=== PATIENT | female | born 1945 | race Caucasian/White ===

== ENCOUNTER 2024-05-29 18:06 | Inpatient (IN) | payer MEDICARE, SELFPAY ==
[2024-05-29] VITALS (8 sets, daily range): BP systolic 115–175; BP diastolic 63–97; BMI 43.7; BMI 42.6
--- NOTE | 2024-05-29 15:36 | ED.GENMED ---
History of Present Illness
General
Chief Complaint: Cardiac Symptoms
Time Seen by Provider: 05/29/24 15:36
History of Present Illness
History of Present Illness:
HPI: The patient presents due to concerns regarding atrial fibrillation. She has had A-fib in the past and has had ablations by [facility] twice in the past most recently a few years ago. She feels that she has been in atrial fibrillation for the
past 7 days. She called her radiation engineer at [facility], Dr. Miranda. She also called Dr. Roberts who recommended that the patient add Imodium as she has been having a lot of diarrhea intermittently for the last few weeks. She has a history of
IBS and is on Viberzi.
EXAM:
GENERAL: Well appearing in no distress
HEENT: Moist oral mucosa
CARDIOVASCULAR: No murmurs, tachycardic heart rate, irregular rhythm, No chest wall tenderness
PULMONARY: No respiratory distress, breath sounds are clear and equal
ABDOMEN: Soft with no peritoneal signs, no tenderness
NEUROLOGIC: Excellent strength all extremities, no coordination deficits
PSYCHIATRIC: Appropriate mental status, normal insight and judgement
EXTREMITIES: Nontender, no edema, moves all extremities equally
SKIN: No rash, no lesions
TIME OF INITIAL ENCOUNTER: 3:45 PM
NUMBER AND COMPLEXITY OF PROBLEMS ADDRESSED AT THE ENCOUNTER
� Chronic conditions affecting care: Atrial fibrillation on Xarelto, CHF, high blood pressure, hyperlipidemia, diverticular disease, thyroid disease
� Acute Exacerbation and/or Progression of Chronic Illness: This is an acute exacerbation of a chronic problem
� Differential Diagnosis includes: A-fib with RVR, electrolyte abnormality, thyroid disease, HORTENCIA, dehydration
AMOUNT AND/OR COMPLEXITY OF DATA TO BE REVIEWED AND ANALYZED
� I performed an independent evaluation of and my interpretation is:
EKG: A-fib with nonspecific ST abnormality and ventricular rate of 155
CT:
X-rays:
Laboratory Studies: CBC normal, chemistries unremarkable, troponin normal, thyroid unremarkable
Other:
� Review of other/old records: The patient was here in September 2023 with left hip surgery
� Clinical information was obtained by an independent historian: I spoke to at bedside
� Prescriptions/Medications Considered but not given:
� Further testing considered but not performed:
RISK OF COMPLICATIONS AND/OR MORBIDITY OR MORTALITY OF PATIENT MANAGEMENT
� Social determinants of health affecting care: Lives at home
� Discussion with other providers: I spoke with Dr. Lyn initially suggested we cardiovert however ultimately was decided to have patient kept in the hospital and he will likely placed on amio at some point. Hospitalist,
Dr. Felton for admission.
� Escalation of care including admission/observation vs risk of discharge considered: The patient was started on Cardizem drip with some improvement of heart rate. Lab work unremarkable.
Past History
Past History
ED Past Medical History: Arrthythmia, CHF, HTN, Hypercholesterolemia and Other (PUD)
ED Past Surgical History: None
Patient has exhibited threatening behavior?: No
PSI?: No
Phy Exam
Physical Exam
Physical Exam:
See HPI
Course
Orders/Labs/Results
Orders:
Orders
05/29/24 Breakfast
Cholesterol Lowering
At Your Request: Full Participation
Cholesterol Lowering: Sodium, 2 Gram
05/29/24 15:17
Electrocardiogram (*1) Urgent
Reason for Study: Atrial Fibrillation
05/29/24 15:18
EKG- Treatment ONCE
05/29/24 15:37
Add On- LAB Urgent
Tests Added?: tsh reflex free t4
05/29/24 15:42
0.9% Sodium Chloride 1000 ml [Nss] 1,000 ml IV BOLUS
Diltiazem HCl [Cardizem] 10 mg IV NOW STA
05/29/24 15:45
Diltiazem 125 mg/125 ml Nss [Cardizem] 125 mg in 125 ml IV PER PROTOCOL
Initial dose in mg/hr, then titrate:: 5
Titrate to keep:: Heart rate 80-100 bpm
Titrate by mg/hr:: 5 mg/hr
Frequency of titrations (minutes):: 15
Maximum dose in mg/hr:: 15
05/29/24 15:50
Complete Blood Count/With Diff Urgent
PT/INR [Prothrombin Time] Urgent
PTT Urgent
Troponin I Urgent
05/29/24 16:19
Comprehensive Metabolic Panel Routine
TSH Reflex To Free T4 Routine
Comment: ADD ON
05/29/24 17:25
Admit/Transfer Patient As Directed
Co-Sign Provider:
Level of Care: Inpatient admission
Assign to:: IVU
Physician / Group: linh
Diagnosis: atrial fib with RVR
Reason for Hospitalization: atrial fib with RVR
Expected length of stay greater than two midnights?: Yes
ELOS- Estimated Length of Stay in days: 3
I certify the patient meets the requirements for IP care: Yes
PRN Pain Medication Management As Directed
May give lesser potent ordered pain med per pt: Yes
preference::
Protocol:: Medication orders for pain may be administered in a
manner that supports deferring to patient preference
when the pt is:
- Requesting an ordered lesser potent pain medication.
Least to most potent pain medications are defined
as: acetaminophen < NSAID < tramadol < opioids
(morphine, oxycodone, hydromorphone).
- Requesting a lesser dose of the same medication IF
ORDERED.
- Requesting a less intrusive route of administration
if both routes are prescribed by the provider (PO <
IV).
05/29/24 17:26
Code Status As Directed
Resuscitation Status: Full Code
05/29/24 20:02
Electrocardiogram (*1) Q6H
Reason for Study: Chest Pain
Comment: at admission and Q3H for total of 3, to be done with each troponin
Troponin I Q3H
Comment: at admit & Q3H for 3 total including ED draws, obtain ECG with each level
Atorvastatin [Lipitor] 20 mg PO QPM
Dofetilide [Tikosyn] 500 mcg PO BID
Rivaroxaban [Xarelto] 20 mg PO QPM
acetaminophen 1,300 mg PO Q12H
calcium carbonate-vitamin D3 [Caltrate 600 plus D] 1 ea PO BID
eluxadoline [Viberzi] 100 mg PO BID
icosapent ethyl [Vascepa] 1 grams PO BID
05/29/24 20:02
CARDIOLOGY CONSULT Routine
Consulting Provider: Alphonso Moore
Was physician already notified: Yes
Glycohemoglobin (HgbA1c) Routine
Norovirus by PCR Routine
MARIANA Source: Feces/Stool
Specimen Description:
Stool Culture Routine
MARIANA Source: Feces/Stool
Specimen Description:
Activity As Directed
Activity Level: As Tolerated
Activity As Directed
Activity Level: As Tolerated
INT (Intravenous Needle Therapy) As Directed
Comment: maintain peripheral IV access
Intake/ Output As Directed
Frequency: Per unit guidelines
Vital Signs As Directed
Frequency: Per unit guidelines
Vital Signs As Directed
Frequency: q4h
Weight As Directed
Frequency: Daily
Cpap [RESP] Routine
Patient to use own unit?: Yes
05/29/24 22:00
Cetirizine HCl [Zyrtec] 10 mg PO HS
esomeprazole magnesium [Nexium] 40 mg PO HS
05/29/24 23:02
Troponin I Q3H
Comment: at admit & Q3H for 3 total including ED draws, obtain ECG with each level
05/30/24 02:02
Electrocardiogram (*1) Q6H
Reason for Study: Chest Pain
Comment: at admission and Q3H for total of 3, to be done with each troponin
Troponin I Q3H
Comment: at admit & Q3H for 3 total including ED draws, obtain ECG with each level
05/30/24 06:00
Basic Metabolic Panel IN AM
Cardiovascular Evaluation IN AM
Complete Blood Count/No Diff IN AM
05/30/24 08:00
Cholecalciferol (Vitamin D3) [VITAMIN D3 (cholecalciferol)] 50 mcg PO DAILY
Ferrous Sulfate [Feosol] 325 mg PO DAILY
mirabegron [Myrbetriq] 50 mg PO DAILY
05/30/24 08:02
Electrocardiogram (*1) Q6H
Reason for Study: Chest Pain
Comment: at admission and Q3H for total of 3, to be done with each troponin
05/31/24 06:00
Basic Metabolic Panel IN AM
Complete Blood Count/No Diff IN AM
06/01/24 06:00
Basic Metabolic Panel IN AM
Complete Blood Count/No Diff IN AM
06/02/24 06:00
Basic Metabolic Panel IN AM
Complete Blood Count/No Diff IN AM
06/03/24 06:00
Basic Metabolic Panel IN AM
Complete Blood Count/No Diff IN AM
Abnormal Lab Results
05/29/24 05/29/24
15:50 16:19
Absolute Neuts (auto) 6.7 H 10^3/uL
(1.4-6.5)
Lymphocytes % 18.0 L %
(20.5-51.1)
PT 15.5 H Sec
(11.4-14.6)
APTT 19.5 L Sec
(23.4-35.0)
Carbon Dioxide 20 L mmol/L
(22-30)
Glucose 111 H mg/dl
(70-99)
05/29/24 15:50
05/29/24 16:19
Vital Signs
Initial and Last Documented VS:
Initial Vital Signs
Temp Pulse Resp BP Pulse Ox
98.4 F 144 18 175/85 94
05/29/24 15:09 05/29/24 15:09 05/29/24 15:09 05/29/24 15:09 05/29/24 15:09
Last Documented Vital Signs
Temp Pulse Resp BP Pulse Ox
98.2 F 108 16 146/85 94
05/29/24 19:57 05/29/24 20:02 05/29/24 19:57 05/29/24 20:02 05/29/24 19:57
*Critical Care Note
Total Time (30-74mins, 75-104mins- exclusive of procedures): 60min
comment:
The patient was placed on Cardizem bolus and drip and vital signs closely monitored. Her rates were 150s.
ED Attending Note
-
Portions of this chart may have been created with voice recognition software.� Occasional wrong word or��sound alike� substitutions may have occurred due to the inherent limitations of voice recognition software.
Discharge Plan
Departure
Patient Disposition: Admit
Date of Disposition: 05/29/24
Time of Disposition: 16:54
Presentation/result/management discussed w/ accepting MD/DO: Hospitalist
Discharge Problem:
Atrial fibrillation with rapid ventricular response
Interventions
Interventions:
*Risk Screen - Suicide Last Done: 05/29/24 20:12
*General Assessment Last Done: 05/29/24 16:30
*Neglect/Abuse Screening Last Done: 05/29/24 16:30
*ED COVID-19 Vaccine History Last Done: 05/29/24 20:12
*Nursing Disposition Last Done: 05/29/24 19:51
ED- Pulmonary Assessment Last Done: 05/29/24 17:39
ED- Cardiac Assessment Last Done: 05/29/24 17:39
Discharge Date and Time
Discharge Date/Time: 05/29/24 19:51
[2024-05-29 16:02] LABS: % Basophils 0.6 % (0-2); % Eosinophils 0.4 % (0-6); % Immature Granulocytes 0.3 % (0-0.5); % Monocytes 6.3 % (1.7-9.3); % Neutrophils 74.4 % (42.2-75.2); Absolute Basophils 0.1 10^3/uL (0-0.2); Absolute Lymphocytes 1.6 10^3/uL (1.2-3.4); Absolute Monocytes 0.6 10^3/uL (0.1-0.6); Absolute Neutrophils 6.7 10^3/uL (1.4-6.5); Hematocrit 38.9 % (37.0-47.0); Hemoglobin 13.6 g/dL (12.0-16.0); Mean Corpuscular Hgb 29.7 pg (27.0-31.0); Mean Corpuscular Volume 84.9 fL (81.0-99.0); Mean Platelet Volume 9.3 fL (7.4-10.4); Nucleated Red Blood Cells % 0 %; Platelet Count 296 10^3/uL (130-400); Red Blood Cell Count 4.58 10^6/uL (4.20-5.40); Red Cell Dist. Width 13.3 % (11.5-14.5)
--- NOTE | 2024-05-29 16:18 | CON.CAR ---
Addendum entered and electronically signed by Alphonso Moore MD 05/29/24 16:56:
I saw and examined the patient.
The VOYAGE MANAGEMENT SYSTEM OPERATOR or PA's note was reviewed and I agree with the note.
Comment: General: Well developed, well nourished in NAD.
Neck: Supple, no JVD, HJR, carotids +2 B/L, no bruits bilaterally.
Heart: Non displaced PMI, Irregular, tachycardic, no murmurs, No S3, S4, no rubs.
Lungs: Clear to auscultation bilaterally, no wheeze, rhonchi, rubs bilaterally,
normal expiratory phase.
Abdomen: Normal bowel sounds, soft, non-tender, non-distended.
Extremities: No clubbing, cyanosis or edema bilaterally.
Neuro: Grossly nonfocal, awake, alert and oriented x3.
Halima has history of A-fib status post PVI x 2 maintained on Tikosyn, Cardizem, Xarelto. She has had issues with diarrhea recently. She reports having A-fib 2 to 3 days every week. However over the past 7 days she has had A-fib persistently. She
presented to the ER in rapid A-fib and cardiology is consulted.
She will be admitted for hydration and treatment of diarrhea. Will continue Tikosyn for now. If she remains in A-fib might consider cardioversion on Tikosyn or change to amiodarone. I discussed with her outpatient EP Dr. Ferguson.
Original Note:
Consultation
Consultation Request
Date/Time Consultation Performed: 05/29/24
Requesting Provider: Dr. Merrill
Performing Provider: Lisseth Felipe PA-C for Dr. Moore
Reason for Consultation: afib
Medical History
-
Chief Complaint: afib, diarrhea
History of Present Illness:
HPI: Halima is a 76-year-old female with past medical history of paroxysmal atrial fibrillation status post PVI x2 most recently in 2018 who is maintained on Tikosyn and Cardizem CD2 40 mg once daily. She also has history of chronic HFpEF,
hypertension, hyperlipidemia, hiatal hernia, obesity, and chronic cystitis who presents to ER for evaluation of atrial fibrillation and diarrhea. She reports she is chronic IBS and has had issues with persisting diarrhea. She called her GI
practice who recommended taking Imodium. She reports she has continued with diarrhea, although over the last day or so she has noted maybe some mild improvement. Denies dark stools or blood in stools. Denies fevers, chills, abd pain, sick
contacts. She states normally she has 2 to 3 days of A-fib every other week, however over the last 7 days has been persistently in A-fib. States her heart rates have ranged from 10 8-1 54, worse with exerting herself. She denies lower extremity
edema or shortness of breath at rest, although does report some shortness of breath with exertion which is typical of being in atrial fibrillation for her. As an outpatient repeat ablation versus convergent maze procedure have been discussed with
patient, however she had opted to continue medical therapy with Tikosyn at last office visit in February. She has been compliant with Xarelto therapy. Labs presently pending.
PMH:
Paroxysmal to persistent Afib
s/p PVI outside hospital 2013
s/p PVI outside hospital 2017
Tikosyn loading and successful CV 03/02/22
Admission for uptitration of Tikosyn 03/15/22
Chronic Xarelto OAC
Chronic HFpEF
HTN
HLD
h/o bradycardia
chronic cystitis
hiatal hernia
OA
obesity
h/o COVID 03/17/22
Past Medical History
Past Medical History: Other (in HPI)
Past Surgical History: Other (Oral surgery, appendectomy, cardioversion, PVI 2013 and 2017)
Social History
Tobacco: Non-Smoker
Alcohol: None
Drug: None
Personal:
Living: With Family
Employment: Retired
Family History
Family History: Reviewed & Not Pertinent
Allergies / Home Medications
Allergy/AdvReac Type Severity Reaction Status Date / Time
fesoterodine fumarate Allergy Unknown Verified 10/06/23 06:06
[From Toviaz]
Sulfa (Sulfonamide Allergy Tongue Verified 10/06/23 06:06
Antibiotics) Swelling
sulfamethoxazole Allergy Tongue Verified 10/06/23 06:06
[From Bactrim] Swelling
trimethoprim [From Bactrim] Allergy Tongue Verified 10/06/23 06:06
Swelling
�Medication �Instructions �Recorded �Confirmed �Type
calcium carbonate 600 mg-vitamin 1 ea PO BID Supplement 02/14/14 10/06/23 History
D3 20 mcg (800 unit) chewable
tablet (Caltrate 600 plus D)
cetirizine 10 mg tablet 10 mg PO HS Allergies 02/14/14 10/06/23 History
esomeprazole magnesium 40 mg 80 mg PO QPM Gastrointestinal issue 02/14/14 10/06/23 History
capsule,delayed release (Nexium)
eluxadoline 100 mg tablet (Viberzi) 100 mg PO BID Gastrointestinal 08/29/18 10/06/23 History
issue
mirabegron 50 mg tablet,extended 50 mg PO DAILY Urinary issue 08/29/18 10/06/23 History
release 24 hr (Myrbetriq)
glucosamine sulfate dipotassium Cl 1 cap PO DAILY Supplement 11/10/18 10/06/23 History
500 mg-chondroitin 400 mg capsule
(Glucosamine Sulfate 2
KCL-Chondroitin)
meclizine 12.5 mg tablet 12.5 mg PO Q8HPRN PRN vertigo 11/10/18 10/06/23 History
diltiazem HCl 240 mg 240 mg PO DAILY #90 caps 03/04/22 10/06/23 Rx
capsule,extended release 24 hr
atorvastatin 20 mg tablet (Lipitor) 20 mg PO HS High cholesterol 08/11/22 10/06/23 History
icosapent ethyl 1 gram capsule 1 g PO BID Kidney Disease 08/11/22 10/06/23 History
(Vascepa)
fluticasone propionate 50 1 spray intranasal DAILYPRN PRN 12/23/22 10/06/23 History
mcg/actuation nasal congestion
spray,suspension (Flonase Allergy
Relief)
rivaroxaban 20 mg tablet (Xarelto) 20 mg PO QPM Blood clot 12/23/22 10/06/23 History
prevention/tx
dofetilide 250 mcg capsule 500 mcg PO BID Arrhythmia 12/24/22 10/06/23 History
acetaminophen 650 mg 1,300 mg PO Q12H Pain 09/08/23 10/06/23 History
tablet,extended release
cholecalciferol (vitamin D3) 50 50 mcg PO DAILY Supplement 09/08/23 10/06/23 History
mcg (2,000 unit) tablet (Vitamin
D3)
ferrous sulfate 325 mg (65 mg 325 mg PO DAILY Supplement 09/08/23 10/06/23 History
iron) tablet (Iron (ferrous
sulfate))
furosemide 20 mg tablet (Lasix) 20 mg PO DAILY PRN swelling 09/08/23 10/06/23 History
prochlorperazine 25 mg rectal 25 mg SD BID PRN vertigo 09/08/23 10/06/23 History
suppository (Compro)
riboflavin (vitamin B2) 400 mg 400 mg PO DAILY Supplement 09/08/23 10/06/23 History
tablet
mupirocin 2 % topical ointment 1 applic topical BID infection 09/27/23 Rx
prevention #1 tube
Saccharomyces boulardii 250 mg 250 mg PO BID #1 cap 10/07/23 Rx
capsule (Florastor)
cefadroxil 500 mg capsule 500 mg PO BID infection prevention 10/07/23 Rx
#14 caps
dexamethasone 4 mg tablet 4 mg PO BID inflammation #6 tabs 10/07/23 Rx
docusate sodium 100 mg capsule 100 mg PO BID stool softner #1 cap 10/07/23 Rx
(Colace)
gabapentin 300 mg capsule 300 mg PO HS sleep/pain #10 caps 10/07/23 Rx
magnesium hydroxide 400 mg/5 mL 30 ml PO HS PRN Constipation #1 mL 10/07/23 Rx
oral suspension (Milk of Magnesia)
ondansetron 4 mg disintegrating 4 mg PO Q6H PRN n/v #20 tabs 10/07/23 Rx
tablet
rivaroxaban 10 mg tablet (Xarelto) 10 mg PO QPM dvt prophylaxis #2 10/07/23 Rx
tabs
sennosides 8.6 mg tablet (Senokot) 17.2 mg (2 x 8.6 mg) PO BID 10/07/23 Rx
laxative #2 tabs
tramadol 50 mg tablet 50 - 100 mg (1 - 2 x 50 mg) PO Q6H 10/07/23 Rx
PRN 1 tab moderate, 2 tabs if pain
severe #30 tabs
Review of Systems
-
History Source: Patient and Family
All other systems: Negative unless noted
Physical Exam
Vital Signs
Temp Pulse Resp BP Pulse Ox
98.4 F 144 18 175/85 94
05/29/24 15:09 05/29/24 15:09 05/29/24 15:09 05/29/24 15:09 05/29/24 15:09
Lab Results
05/29/24 15:50
Physical Exam
General: No Apparent Distress, Comfortable and Other (obese)
HEENT: Normocephalic, Anicteric and Moist Mucous Membranes
Respiratory: Clear and Non Labored Respirations
Cardiac: S1/S2 and Irregular Rhythm
GI: Soft, Non Tender, Non Distended and Normal Bowel Sounds
Musculoskeletal: No Clubbing, No Cyanosis and No Edema
Skin: Warm and Dry
Neuro: AO x 3
Impression / Plan
-
Primary Desk Officer: Dr. Miranda of [facility]
Primary EP: Dr. Ferguson
Impression:
Presented with diarrhea in setting of chronic IBS
Suspected dehydration
Paroxysmal Afib w/ RVR
s/p PVI outside hospital 2013
s/p PVI outside hospital 2018
Tikosyn loading and successful CV 03/02/22
Admission for uptitration of Tikosyn 03/15/22
Chronic Xarelto OAC
Chronic HFpEF
HTN
HLD
h/o bradycardia
chronic cystitis
hiatal hernia
OA
obesity
h/o COVID 03/17/22
ECHO 2019: at [facility]: EF 72%, normal LV wall thickness, normal RV size and function, mildly dilated LA
Plan:
-She presents with recent persistent diarrhea
-There is concern for dehydration
-Also in atrial fibrillation with rapid ventricular response, patient reports persistent over the last 7 days, likely secondary to above
-She reports what appears to be a fairly high burden of atrial fibrillation on tikosyn 500mcg Q12H. would consider tikosyn washout with transition to amiodarone as bridge to redo ablation. she is agreeable to consider redo ablation if needed,
however would like to avoid convergent MAZE procedure as more invasive
-for now, await labs. replete electrolytes as needed. IV fluid hydration
-initiate IV cardizem gtt
-treatment of diarrhea per primary service/GI
-consider for CV prior to DC. no missed doses of xarelto, continue
-trop negative
-will attempt to obtain records from Dr. Miranda's office in AM - consider repeating echo, last from 2019 with results as above
-d/w ER physician. d/w EP. d/w patient and at bedside.
PREADMIT-Halima is a 76-year-old female with past medical history of paroxysmal atrial fibrillation status post PVI x2 who is maintained on Tikosyn and Cardizem CD2 40 mg once daily. She also has history of chronic HFpEF, hypertension,
hyperlipidemia, hiatal hernia, obesity, and chronic cystitis who presents to ER for evaluation of 24 hours of vertigo and feeling off balance with associated nausea and vomiting. On arrival to the emergency room she was noted to be in rapid
atrial fibrillation by EKG with heart rate of 141bpm. She was given 10 mg of IV Cardizem and started on Cardizem drip. Heart rates improved, however still elevated in 110s. She is maintained on chronic Xarelto for anticoagulation and denies any
missed doses. Lab work shows stable kidney function and electrolytes. Troponin negative x1. She denies any chest pain, palpitations, shortness of breath at rest, or dyspnea on exertion. In ED she was also given Valium and Zofran along with IV
fluids for vertigo symptoms. Patient had recent admission to for up titration of Tikosyn on 03/15/2022. She had recurrence of atrial fibrillation during this admission and plan was for outpatient cardioversion if she did not spontaneously
convert, however at outpatient follow-up visit she was in sinus rhythm.
Data Reviewed
-
EKG: Tracing Personally Visualized and interpreted
Medical Tests (Nuc Med, Echo etc): Report Reviewed by me
Labs: Labs Reviewed by me
Old Records: Reviewed
[2024-05-29 16:22] LABS: Troponin I < 0.012 ng/ml
[2024-05-29] MEDS: CARDIZEM 10 MG IV (16:22)
[2024-05-29] MEDS: NSS 1000 IV (16:22)
[2024-05-29] MEDS: CARDIZEM 125 IV (16:27)
[2024-05-29 16:32] LABS: INR 1.25; PT 15.5 Sec (11.4-14.6)
[2024-05-29 16:33] LABS: APTT 19.5 Sec (23.4-35.0)
[2024-05-29 16:44] LABS: ALT (SGPT) 20 U/L (0-35); AST (SGOT) 31 U/L (14-36); Albumin 4.5 g/dl (3.5-5.0); Alkaline Phosphatase 116 U/L (38-126); Blood Urea Nitrogen 17 mg/dl (7-17); Calcium 9.5 mg/dl (8.4-10.2); Carbon Dioxide 20 mmol/L (22-30); Chloride 105 mmol/L (98-107); Estimated Creatinine Clearance 92 ml/min; Glucose 111 mg/dl (70-99); Sodium 141 mmol/L (135-145); Total Bilirubin 0.8 mg/dl (0.2-1.3); Total Protein 7.2 g/dl (6.3-8.2); eGFR > 60.00
--- NOTE | 2024-05-29 17:03 | HPS.HSE ---
Family Physician
-
Family Physician: Rashard Mckeon MD
Chief Complaint
-
sob
-diarrhea
History of Present Illness
76-year-old female with past medical history of paroxysmal atrial fibrillation status post PVI x2 most recently in 2018 who is maintained on Tikosyn and Cardizem CD2 40 mg once daily. She also has history of chronic HFpEF, hypertension,
hyperlipidemia, hiatal hernia, obesity, and chronic cystitis who presents to ER for evaluation of atrial fibrillation and diarrhea. She reports she is chronic IBS and has had issues with persisting diarrhea. for past three weeks, intermittent
diarrhea. her GI recommended Imodium which she took with some relief in her symptoms. Denies dark stools or blood in stools. Denies fevers, chills, abd pain, sick contacts. for past 7 days, she was noted too have intermittent atrial fib. she noted
it in her apple watch.stated sob, when in atrial fib.she felt chest pressure with atrial fib. she was lightheaded. denied FLORES or syncopal episode. denied fever, chills, runny nose, congestion, cough. denied abdominal pain, n,v. denied dysuria or
hematuria. denied weight gain or LE edema.
On arrival she was noted in rapid A-fib. Initiated on Cardizem. Admitting for further management
Medical History
Past Medical History
Past Medical History: Reports Other
Additional Past Medical History:
A-fib
sjorgen disease
Bleeding ulcer
Hiatal hernia
Fibromyalgia
Interstitial cystitis
Osteoarthritis
Hyperlipidemia
IBS
M�ni�re's disease
Lupus
Hypertension
Cardiac ablation
Past Surgical History: Reports Other
Additional Past Surgical History:
Oral surgery
Appendectomy
Cardioversion
Dental implant
Left hip replacement
Social History
Tobacco: Non-smoker
Alcohol: None
Drug: None
Personal:
Living: With Family
Family History
Family History: Not pertinent
Allergies / Home Medications
Allergies reflects when Allergies were last updated in [facility].
Home Medications with original date entered in [facility]
Allergy/Medication List:
Allergies
Allergy/AdvReac Type Severity Reaction Status Date / Time
fesoterodine fumarate Allergy Unknown Verified 05/29/24 16:29
[From Toviaz]
Sulfa (Sulfonamide Allergy Tongue Verified 05/29/24 16:29
Antibiotics) Swelling
sulfamethoxazole Allergy Tongue Verified 05/29/24 16:29
[From Bactrim] Swelling
trimethoprim [From Bactrim] Allergy Tongue Verified 05/29/24 16:29
Swelling
Home Medications
calcium carbonate 600 mg-vitamin D3 20 mcg (800 unit) chewable tablet (Caltrate 600 plus D) 1 ea PO BID Supplement 02/14/14
cetirizine 10 mg tablet 10 mg PO HS Allergies 02/14/14
eluxadoline 100 mg tablet (Viberzi) 100 mg PO BID Gastrointestinal issue 08/29/18
mirabegron 50 mg tablet,extended release 24 hr (Myrbetriq) 50 mg PO DAILY Urinary issue 08/29/18
glucosamine sulfate dipotassium Cl 500 mg-chondroitin 400 mg capsule (Glucosamine Sulfate 2 KCL-Chondroitin) 1 cap PO DAILY Supplement 11/10/18
meclizine 12.5 mg tablet 12.5 mg PO Q8HPRN PRN vertigo 11/10/18
diltiazem HCl 240 mg capsule,extended release 24 hr 240 mg PO DAILY #90 caps 03/04/22
atorvastatin 20 mg tablet (Lipitor) 20 mg PO QPM High cholesterol 08/11/22
icosapent ethyl 1 gram capsule (Vascepa) 1 g PO BID Kidney Disease 08/11/22
fluticasone propionate 50 mcg/actuation nasal spray,suspension (Flonase Allergy Relief) 1 spray intranasal DAILYPRN PRN congestion 12/23/22
rivaroxaban 20 mg tablet (Xarelto) 20 mg PO QPM Blood clot prevention/tx 04/06/23
acetaminophen 650 mg tablet,extended release 1,300 mg PO Q12H Pain 09/08/23
cholecalciferol (vitamin D3) 50 mcg (2,000 unit) tablet (Vitamin D3) 50 mcg PO DAILY Supplement 09/08/23
ferrous sulfate 325 mg (65 mg iron) tablet (Iron (ferrous sulfate)) 325 mg PO DAILY Supplement 09/08/23
furosemide 20 mg tablet (Lasix) 20 mg PO DAILYPRN PRN swelling 09/08/23
prochlorperazine 25 mg rectal suppository (Compro) 25 mg [place] BIDPRN PRN vertigo 09/08/23
riboflavin (vitamin B2) 400 mg tablet 400 mg PO DAILY Supplement 09/08/23
dofetilide 500 mcg capsule 500 mcg PO BID 05/29/24
esomeprazole magnesium 20 mg capsule,delayed release (Nexium) 40 mg PO HS 05/29/24
metoprolol succinate 25 mg tablet,extended release 24 hr 25 mg PO DAILYPRN PRN atrial fibrillation 05/29/24
Review of Systems
-
Constitutional: Reports No Symptoms
EENT: Reports No Symptoms
Respiratory: Reports Trouble Breathing
Cardiac: Reports No Symptoms
Abdomen/GI: Reports Diarrhea
: Reports No Symptoms
Musculoskeletal: Reports No Symptoms
Skin: Reports No Symptoms
Neurological: Reports No Symptoms
Endocrine: Reports No Symptoms
Hematologic/Lymphatic: Reports No Symptoms
Psych: Reports No Symptoms
Physical Exam
Vital Signs
Vital Signs
Temp Pulse Resp BP Pulse Ox
98.4 F 133 18 135/97 94
05/29/24 15:09 05/29/24 16:22 05/29/24 15:05/29/24 16:22 05/29/24 15:09
Physical Exam
General: Well Developed, Well Nourished and No Apparent Distress
HEENT: NormoCephalic, Moist mucous membranes and Atraumatic
Respiratory: Clear
Cardiac: Irregular Rhythm and Tachycardia; No Murmur or Rub
GI: Soft, Non Tender, Non Distended and Normal Bowel Sounds; No Organomegaly
Rectal: Deferred by Provider
Musculoskeletal: No Clubbing, No Cyanosis and No Edema
Skin: No Rash
Neuro: AO x 3 and Nonfocal/grossly intact
Psych: Calm
Laboratory Results
-
05/29/24 15:50
05/29/24 16:19
Laboratory Results
PT 15.5 Sec (11.4-14.6) H 05/29/24 15:50
INR 1.25 05/29/24 15:50
APTT 19.5 Sec (23.4-35.0) L 05/29/24 15:50
Total Bilirubin 0.8 mg/dl (0.2-1.3) 05/29/24 16:19
AST 31 U/L (14-36) 05/29/24 16:19
ALT 20 U/L (0-35) 05/29/24 16:19
Alkaline Phosphatase 116 U/L (38-126) 05/29/24 16:19
Troponin I < 0.012 ng/ml 05/29/24 15:50
Data Reviewed
-
Lab Data: Labs Reviewed by me
Impression/Plan
-
# A-fib with RVR
-EKG A-fib with RVR
-History of cardiac ablation in the past
-Cardizem started in ER
-Tikosyn continued
-xarelto continued
-Cardiology consulted
# Diarrhea likely viral
# History of IBS
-Obtain stool for culture, norovirus
-Viiberzi continued
#TAVIA on CPAP: Cont CPAP HS
#Sjogrens disease
#History of bleeding ulcer: Cont PPI
#Fibromyalgia
-Tylenol continued
#Hypercholesterolemia
-Statin continued
# DVT prophy waxes
-On Xarelto
# CODE STATUS
-Full code
[2024-05-29 17:15] LABS: TSH Reflex To Free T4 1.74 uIU/ml (0.47-4.68)
--- NOTE | 2024-05-29 18:13 | W.PN.UPDATE ---
Update Note
Progress Note Update
This is an addendum to the H&P written by Jessica Price. 78-year-old female past medical history of paroxysmal atrial fibrillation status post ablations in the past, chronic HFpEF, hypertension, hyperlipidemia, hiatal hernia, obesity, chronic cystitis,
IBS presenting with atrial fibrillation with RVR likely triggered from ongoing intermittent loose stool/diarrhea for the past few weeks.
Atrial fibrillation with RVR. IV fluids given hold off on further fluids given history of heart failure. Cardizem drip. Continue Tikosyn. Cardiology will consider cardioversion or change to amiodarone tomorrow if she is still in A-fib.
Recommended by her GI doctor to take Imodium and outpatient follow-up with GI. Loose stools have actually improved today.
--- NOTE | 2024-05-29 20:06 | TRANSFER ---
Pt. received from ED. Pt. AOx3. No complaints of pain at this time. Tele reading Afib RVR. Cardizem gtt running. SBP 140s. Plan of care explained to pt. Continuing to monitor pt at this time.
[2024-05-29] MEDS: OSCAL 500 + D 500 MG PO (20:51)
[2024-05-29] MEDS: XARELTO 20 MG PO (20:51)
[2024-05-29] MEDS: LIPITOR 20 MG PO (20:52)
[2024-05-29] MEDS: IMODIUM 2 MG PO (20:52)
[2024-05-29] MEDS: TIKOSYN 500 MCG PO (20:52)
[2024-05-29 21:02] LABS: Troponin I < 0.012 ng/ml
[2024-05-29] MEDS: PROTONIX 40 MG PO (23:12)
[2024-05-29] MEDS: TYLENOL 650 MG PO (23:12)
[2024-05-29] MEDS: ZYRTEC 10 MG PO (23:12)
[2024-05-29 23:21] LABS: Troponin I 0.015 ng/ml
[2024-05-30] MEDS: CARDIZEM 125 IV (00:04)
[2024-05-30 02:43] VITALS: BP 122/75
[2024-05-30] MEDS: TYLENOL PO ×2 (03:03→11:23)
[2024-05-30 03:31] LABS: Hematocrit 35.2 % (37.0-47.0); Hemoglobin 12.3 g/dL (12.0-16.0); Mean Corp Hgb Conc. 34.9 g/dL (33.0-37.0); Mean Corpuscular Hgb 31.1 pg (27.0-31.0); Mean Corpuscular Volume 88.9 fL (81.0-99.0); Platelet Count 237 10^3/uL (130-400); Red Blood Cell Count 3.96 10^6/uL (4.20-5.40); Red Cell Dist. Width 13.4 % (11.5-14.5); White Blood Cell Count 8.1 10^3/uL (4.8-10.8)
[2024-05-30 03:42] LABS: Blood Urea Nitrogen 14 mg/dl (7-17); Calcium 9.5 mg/dl (8.4-10.2); Carbon Dioxide 23 mmol/L (22-30); Chloride 108 mmol/L (98-107); Estimated Creatinine Clearance 91 ml/min; Glucose 95 mg/dl (70-99); HDL Cholesterol 44 mg/dl; LDL Cholesterol, Calculated 74 mg/dl; Potassium 3.5 mmol/L (3.5-5.1); Sodium 142 mmol/L (135-145); Total Cholesterol 159 mg/dl (50-199); Triglyceride 209 mg/dl (10-149); Very Low Density Lipoprotein 41 mg/dl (0-30); eGFR > 60.00
[2024-05-30 03:53] LABS: Troponin I 0.015 ng/ml
--- NOTE | 2024-05-30 05:18 | PTCARENOTE ---
Pt. converted from Afib into NSR approximately 4am. 12-lead EKG and tele strip in chart. continuing to monitor the pt.
[2024-05-30 06:46] VITALS: BP 124/56
[2024-05-30 06:49] VITALS: BP 124/56
--- NOTE | 2024-05-30 07:50 | PTCARENOTE ---
Assumed care of pt from prev nsg shift; Pt AAOx3 w/no c/o CP or sob. Pt w/VS stable w/HR in the 70's & BP this AM 124/56. Pt is SR on telemetry monitoring. Pt w/IV Cardizem infusing as ordered through patent IV line. Pt w/call waddell within reach &
plan of care ongoing.
--- NOTE | 2024-05-30 08:23 | W.PN.CARDCBS ---
Addendum entered and electronically signed by Nayan Ferguson MD 05/30/24 10:21:
agree with PA-C notes and assessment
agree with PA plan
exam:
per PA-C note
exam deferred
Impression:
Presented with diarrhea in setting of chronic IBS
Suspected dehydration
Paroxysmal Afib w/ RVR
s/p PVI outside hospital 2013
s/p PVI outside hospital 2018
Tikosyn loading and successful CV 03/02/22
Admission for uptitration of Tikosyn 03/15/22Chronic Xarelto OAC
Chronic HFpEF
HTN
HLD
h/o bradycardia
chronic cystitis
hiatal hernia
OA
obesity
h/o COVID 03/17/22
ECHO 2019: at [place]: EF 72%, normal LV wall thickness, normal RV size and function, mildly dilated LA
Plan:
-She presents with recent persistent diarrhea and suspected dehydration
-in afib with RVR for 7 days leading up to admission, felt to be secondary to above
-fortunately she has spontaneously converted to SR overnight. stop IV cardizem. will increase po cardizem dose to 360mg daily and continue toprol 25mg PRN for breakthrough
-for now continue tikosyn. would reassess as OP, and consider transition to amiodarone if continues with breakthrough on tikosyn. will discuss redo ablation with patient again in office
-continue xarelto
-reports diarrhea improving. continue treatment per primary service/GI
-will attempt to obtain records from Dr. Miranda's office
-ok for DC to home today from cardiac standpoint.
-will arrange OP EP follow up
Original Note:
Today's Communication / Plan
-
back in SR
stop IV cardizem, restart po cardizem at increased dose of 360mg daily
continue toprol 25mg PRN breakthrough
continue xarelto
will arrange OP EP follow up
ok for DC to home today from cardiac standpoint
Impression / Plan
-
Primary Asset Management Analyst: Dr. Miranda of [place]
Primary EP: Dr. Ferguson
Impression:
Presented with diarrhea in setting of chronic IBS
Suspected dehydration
Paroxysmal Afib w/ RVR
s/p PVI outside hospital 2013
s/p PVI outside hospital 2018
Tikosyn loading and successful CV 03/02/22
Admission for uptitration of Tikosyn 03/15/22
Chronic Xarelto OAC
Chronic HFpEF
HTN
HLD
h/o bradycardia
chronic cystitis
hiatal hernia
OA
obesity
h/o COVID 03/17/22
ECHO 2019: at [place]: EF 72%, normal LV wall thickness, normal RV size and function, mildly dilated LA
Plan:
-She presents with recent persistent diarrhea and suspected dehydration
-in afib with RVR for 7 days leading up to admission, felt to be secondary to above
-fortunately she has spontaneously converted to SR overnight. stop IV cardizem. will increase po cardizem dose to 360mg daily and continue toprol 25mg PRN for breakthrough
-for now continue tikosyn. would reassess as OP, and consider transition to amiodarone if continues with breakthrough on tikosyn. will discuss redo ablation with patient again in office
-continue xarelto
-reports diarrhea improving. continue treatment per primary service/GI
-will attempt to obtain records from Dr. Miranda's office
-ok for DC to home today from cardiac standpoint.
-will arrange OP EP follow up
PREADMIT-Halima is a 76-year-old female with past medical history of paroxysmal atrial fibrillation status post PVI x2 who is maintained on Tikosyn and Cardizem CD2 40 mg once daily. She also has history of chronic HFpEF, hypertension,
hyperlipidemia, hiatal hernia, obesity, and chronic cystitis who presents to ER for evaluation of 24 hours of vertigo and feeling off balance with associated nausea and vomiting. On arrival to the emergency room she was noted to be in rapid
atrial fibrillation by EKG with heart rate of 141bpm. She was given 10 mg of IV Cardizem and started on Cardizem drip. Heart rates improved, however still elevated in 110s. She is maintained on chronic Xarelto for anticoagulation and denies any
missed doses. Lab work shows stable kidney function and electrolytes. Troponin negative x1. She denies any chest pain, palpitations, shortness of breath at rest, or dyspnea on exertion. In ED she was also given Valium and Zofran along with IV
fluids for vertigo symptoms. Patient had recent admission to for up titration of Tikosyn on 03/15/2022. She had recurrence of atrial fibrillation during this admission and plan was for outpatient cardioversion if she did not spontaneously
convert, however at outpatient follow-up visit she was in sinus rhythm.
Progress Note - Asset Management Analyst
Subjective
Date of Service: May 30, 2024
Feeling improved this morning. Reports no diarrhea overnight
Objective
Labs:
05/30/24 02:57
05/30/24 02:57
Labs
Hgb 12.3 g/dL (12.0-16.0) 05/30/24 02:57
Hct 35.2 % (37.0-47.0) L 05/30/24 02:57
Plt Count 237 10^3/uL (130-400) 05/30/24 02:57
PT 15.5 Sec (11.4-14.6) H 05/29/24 15:50
INR 1.25 05/29/24 15:50
APTT 19.5 Sec (23.4-35.0) L 05/29/24 15:50
Sodium 142 mmol/L (135-145) 05/30/24 02:57
Potassium 3.5 mmol/L (3.5-5.1) 05/30/24 02:57
BUN 14 mg/dl (7-17) 05/30/24 02:57
Creatinine 0.6 mg/dL (0.6-1.0) 05/30/24 02:57
Glucose 95 mg/dl (70-99) 05/30/24 02:57
Troponins
05/29/24 05/29/24 05/29/24
15:50 20:32 22:44
Troponin I < 0.012 < 0.012 0.015 D
05/30/24
02:57
Troponin I 0.015
Vital Signs and I&O:
Vital Signs
Temp Pulse Resp BP Pulse Ox
97.9 F 76 16 124/56 94
05/30/24 06:46 05/30/24 07:00 05/30/24 06:46 05/30/24 06:49 05/30/24 02:43
Vital Signs
Temp Pulse Resp BP Pulse Ox
97.9 F 76 16 124/56 94
05/30/24 06:46 05/30/24 07:00 05/30/24 06:46 05/30/24 06:49 05/30/24 02:43
Intake & Output
05/28/24 05/29/24 05/30/24 05/31/24
07:59 07:59 07:59 07:59
Intake Total 200 / 200
Balance 200 / 200
Physical Exam
Physical Exam
GEN: No distress, awake, alert, oriented x3. obese
HEENT: supple, anicteric, mmm, eomi
LUNGS: CTA B/L, no wheezes/rales
CV: Reg, S1/S2, no murmur
ABD: soft, BS+, NT/ND
EXT: No cyanosis, clubbing, edema
NEURO: Gross non-focal
SKIN: Warm, pink, dry. No rash
[2024-05-30 09:31] LABS: Glycohemoglobin (HgbA1c) 5.4 % (4.0-5.6)
[2024-05-30] MEDS: KCL 40 MEQ PO (09:46)
[2024-05-30] MEDS: MYRBETRIQ EXTENDED RELEASE 50 MG PO (09:46)
[2024-05-30] MEDS: TIKOSYN 500 MCG PO (09:46)
[2024-05-30] MEDS: OSCAL 500 + D PO (09:47)
[2024-05-30] MEDS: VITAMIN D3 (cholecalciferol) 50 MCG PO (09:47)
[2024-05-30] MEDS: FEOSOL 325 MG PO (09:47)
--- NOTE | 2024-05-30 11:13 | CM ---
Chart reviewed. Patient is independent of ADLS, lives with her in a 1 [address], 0 BERTO, 0 DME. Plan is for the patient to return home. CM to follow
[2024-05-30] MEDS: CARDIZEM CD 360 MG PO (11:23)
--- NOTE | 2024-05-30 11:29 | W.PN.HOSP.TC ---
Today's Communication/Plan
-
Monitor vital signs see plan
Patient now feeling better since she converted to normal sinus rhythm
Cardizem increased
Discharge today
Time of discharge 36 minutes
Assessment / Plan
Assessment / Plan
General: Well Developed, Well Nourished and No Apparent Distress
HEENT: NormoCephalic, Moist mucous membranes and Atraumatic
Respiratory: Clear
Cardiac: Irregular Rhythm and Tachycardia; No Murmur or Rub
GI: Soft, Non Tender, Non Distended and Normal Bowel Sounds
Musculoskeletal: No Edema
Neuro: AO x 3 and Nonfocal/grossly intact
Psych: Calm
A-fib with RVR
History of paroxysmal atrial fibrillation
-History of cardiac ablation in the past
Now converted to normal sinus rhythm, Cardizem dose increased by cardiology. Patient will follow-up with cardiology outpatient
-Tikosyn continued
-xarelto continued
-Cardiology consulted
# Diarrhea likely viral
# History of IBS
Diarrhea improving so no stool sample collected
-Viiberzi continued
#TAVIA on CPAP: Cont CPAP HS
#Sjogrens disease
#History of bleeding ulcer: Cont PPI
#Fibromyalgia
-Tylenol continued
#Hypercholesterolemia
-Statin continued
# DVT prophy waxes
-On Xarelto
# CODE STATUS
-Full code
Anticipated Discharge: Today
Subjective/Interval History
-
Date of Service: May 30, 2024
denies pain
Objective Data
-
Labs:
Laboratory Results
05/30/24
02:57
WBC 8.1
Hgb 12.3
Hct 35.2 L
Plt Count 237
Sodium 142
Potassium 3.5
Chloride 108 H
Carbon Dioxide 23
BUN 14
Creatinine 0.6
Glucose 95
Calcium 9.5
Vital Signs:
Vital Signs
Temp Pulse Resp BP Pulse Ox
97.9 F 76 16 124/56 94
05/30/24 06:46 05/30/24 07:00 05/30/24 06:46 05/30/24 06:49 05/30/24 10:24
I&O
05/29/24 05/30/24 05/31/24
06:59 06:59 06:59
Intake Total 200 / 200 720 / 720
Output Total 400 / 400
Balance 200 / 200 320 / 320
--- NOTE | 2024-05-30 11:33 | W.DCSUMMARY ---
Discharge Summary
Discharge Data
Date of Admission: 05/29/24
Date of Discharge: 05/30/24
-
Pending Results: No
Hospital Course
78-year-old female with past medical history of atrial fibrillation, IBS, TAVIA, Sjogren's disease, PUD, fibromyalgia, hyperlipidemia came to the hospital with atrial fibrillation with rapid ventricular rate. Patient was seen by cardiology throughout
hospitalization. Initially patient was started on Cardizem drip. Patient converted back to normal sinus rhythm on her own. We increased her Cardizem dosage prior to discharge. She is also instructed to continue Tikosyn and to take metoprolol as
needed. She also had some diarrhea which over time was improving with Imodium. Once her symptoms continue to improve and she was feeling better after converting to normal sinus rhythm, she was then discharged home with instructions to follow-up
with all her physicians outpatient.
Discharge Plan
-
Patient Disposition: Home (Routine Discharge)
Discharge Diagnosis/Procedures: atrial fibrillation, diarrhea, dehydration
Diet: As tolerated
Activity: As tolerated
Driving Restrictions: As prior to admission
Bathing Restrictions: None
Specialty Instructions: Weigh Daily- Call MD for wt gain/loss 3 lbs overnight/5 lbs in 1 week
Referrals:
Nayan Ferguson MD [Active] - 07/20/24 1:40 pm (You have a cardiology follow-up appointment at the [place] office. Please call with questions)
Rashard Mckeon MD [Family Provider] - in less than 1 week
Prescriptions:
New
loperamide 2 mg Capsule
2 mg PO Q4HPRN PRN (Reason: diarrhea) Qty: 0 0RF
diltiazem HCl 180 mg Capsule,Extended Release 24hr
360 mg PO DAILY Qty: 60 0RF
Continued
cetirizine 10 MG tablet
10 mg PO HS
Caltrate 600 plus D 1 EACH tablet,chewable
1 ea PO BID
mirabegron [Myrbetriq] 50 MG tablet extended release 24 hr
50 mg PO DAILY
Viberzi 100 MG tablet
100 mg PO BID
meclizine 12.5 MG tablet
12.5 mg PO Q8HPRN PRN (Reason: vertigo)
Glucosamine Sulf-Chondroitin 1 EACH capsule
1 cap PO DAILY
atorvastatin [Lipitor] 20 mg Tablet
20 mg PO QPM
icosapent ethyl [Vascepa] 1 gram Capsule
1 g PO BID
fluticasone propionate [Flonase Allergy Relief] 50 mcg/actuation [place],Suspension
1 spray INTRANASAL DAILYPRN PRN (Reason: congestion)
Xarelto 20 mg Tablet
20 mg PO QPM
acetaminophen 650 mg Tablet Extended Release
1,300 mg PO Q12H
prochlorperazine [Compro] 25 mg Suppository
25 mg [place] BIDPRN PRN (Reason: vertigo)
ferrous sulfate [Iron (ferrous sulfate)] 325 mg (65 mg iron) Tablet
325 mg PO DAILY
furosemide [Lasix] 20 mg Tablet
20 mg PO DAILYPRN PRN (Reason: swelling)
cholecalciferol (vitamin D3) [Vitamin D3] 50 mcg (2,000 unit) Tablet
50 mcg PO DAILY
riboflavin (vitamin B2) 400 mg Tablet
400 mg PO DAILY
metoprolol succinate 25 mg Tablet Extended Release 24 Hr
25 mg PO DAILYPRN PRN (Reason: atrial fibrillation)
dofetilide 500 mcg Capsule
500 mcg PO BID
esomeprazole magnesium [Nexium] 20 mg Capsule,Delayed Release(Dr/Ec)
40 mg PO HS
Discontinued
diltiazem HCl 240 MG capsule,extended release 24hr
240 mg PO DAILY Qty: 90 3RF
Discharge Orders:
Discharge Patient (As Directed); Ordered 05/30/24
Ordered By: Martinez Lloyd
Care Plan Goals
Care Plan Goals:
Problem: Readiness for enhanced knowledge related to diagnosis and treatment plan
Goal: Understand your diagnosis and treatment plan needs, including medications if applicable.
Instructions: Know your diagnosis, underlying causes and treatment plan options, including medications if applicable. Consult with your health care team to learn about your diagnosis and treatment plan, including medications if applicable.
Discharge Date and Time
Discharge Date/Time: 05/30/24 13:17
Print Language: ZAMBIAN
[2024-05-30 12:33] VITALS: BP 136/72
--- NOTE | 2024-05-30 13:10 | PTCARENOTE ---
D/C'd pt's IV line & telemetry pack. 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 Pt taken out via wheelchair by staff w/spouse providing transportation home.
== END 2024-05-30 13:17 | disposition home or self-care (01) | DRG 309 ==
LOC: IVU 18:06
PROVIDERS: Emergency Medicine; Registered Nurse; ADMITTING PHYSICIAN Hospitalist; ATTENDING PHYSICIAN Internal Medicine; CONSULT PHYSICIAN Internal Medicine Cardiovascular Disease; EMERGENCY PHYSICIAN Emergency Medicine; FAMILY PHYSICIAN Student in an Organized Health Care Education/Training Program
DX: I48.0 Paroxysmal atrial fibrillation (principal); I50.32 Chronic diastolic (congestive) heart failure; Z68.41 Body mass index [BMI] 40.0-44.9, adult; I11.0 Hypertensive heart disease with heart failure; K58.0 Irritable bowel syndrome with diarrhea; E78.00 Pure hypercholesterolemia, unspecified; E66.9 Obesity, unspecified; K44.9 Diaphragmatic hernia without obstruction or gangrene; N30.10 Interstitial cystitis (chronic) without hematuria; G47.33 Obstructive sleep apnea (adult) (pediatric); M35.00 Sjogren syndrome, unspecified; E86.0 Dehydration; A08.4 Viral intestinal infection, unspecified; M79.7 Fibromyalgia; Z96.642 Presence of left artificial hip joint; Z88.2 Allergy status to sulfonamides; Z88.1 Allergy status to other antibiotic agents; Z87.11 Personal history of peptic ulcer disease; Z79.899 Other long term (current) drug therapy; Z79.01 Long term (current) use of anticoagulants; Z86.16 Personal history of COVID-19
CPT/HCPCS: 80048; 80053; 80061; 83036; 84443; 84484; 85025; 85027; 85610; 85730; 93005; 96361; 96374; 99291

== ENCOUNTER 2024-10-18 08:07 | Day surgery (SDC) | payer MEDICARE, SELFPAY ==
[2024-09-27 12:00] VITALS: BMI 43.4
--- NOTE | 2024-09-27 12:02 | HPS.HSE ---
Family Physician
-
Family Physician: INTERVIEWE UNKNOWN - PT NOT
Chief Complaint
-
Paroxysmal atrial fibrillation.
History of Present Illness
The patient is a 78-year-old morbidly obese, female presenting today for paroxysmal atrial fibrillation. The patient reports fatigue, chest discomfort, shortness of breath with exertion, and palpitations associated with this diagnosis. She
previously underwent 3 cardioversions and pulmonary vein isolation in 2014 and 2018 secondary to her arrhythmia. She is on current pharmacological therapy with Diltiazem, Dofetilide, and Metoprolol. She reports she has been compliant with Xarelto
for oral anticoagulation. She notes that her current symptoms greatly interfere with her activities of daily living and overall impact her quality of life. She is interested in pursuing pulmonary vein isolation again for further arrhythmia
management. She denies any current complaints today such as chest pain and shortness of breath at rest, palpitations, nausea, vomiting, diarrhea, cough, sore throat, or fever.
Medical History
Past Medical History
Past Medical History: Reports Other
Additional Past Medical History:
1. Paroxysmal atrial fibrillation, status post cardioversion x3 and pulmonary vein isolation x2; pharmacological therapy with Diltiazem, Dofetilide, and Metoprolol and oral anticoagulation with Xarelto.
2. Sinus bradycardia.
3. Hypertension.
4. Hyperlipidemia.
5. Obstructive sleep apnea, compliant with CPAP.
6. GERD.
7. Hiatal hernia.
8. Peptic ulcer disease with remote GI bleed.
9. Irritable bowel syndrome.
10. Meniere's disease.
11. Lumbar degenerative disc disease with stenosis.
12. Osteoarthritis, status post left total hip arthroplasty 09/2023.
13. Left comminuted proximal humerus fracture secondary to fall, status post left reverse total shoulder arthroplasty 12/2022.
14. Thyroid nodules.
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
16. Fibromyalgia.
17. Sjogren's syndrome.
18. Paget's disease.
19. Interstitial cystitis.
20. Urinary incontinence secondary to pelvic floor dysfunction.
21. Influenza with associated acute bronchitis, late 08/2024, improved with antibiotic therapy.
22. Morbid obesity BMI 43.4.
Past Surgical History: Reports Other
Additional Past Surgical History:
1. Pulmonary vein isolation x2.
2. Cardioversion x3.
3. Appendectomy.
4. Left total hip arthroplasty.
5. Left reverse total shoulder arthroplasty.
6. Oral surgery.
7. Dental implantation.
8. Epidural steroid injections.
9. Colonoscopy x3.
10. Endoscopy x3.
Social History
Tobacco: Non-smoker
Alcohol: None
Personal:
Living: Other (She lives in a ranch-style home with her . )
Family History
Family History: Not pertinent
Allergies / Home Medications
Allergy/Medication List:
Home medications:
1. Acetaminophen 1300 mg p.o. every 12 hours as needed.
2. Atorvastatin 20 mg p.o. every evening.
3. Caltrate plus vitamin D 1 tablet p.o. twice a day.
4. Cetirizine 10 mg p.o. at bedtime.
5. Cholecalciferol 50 mcg p.o. daily.
6. Diltiazem 180 mg p.o. twice a day.
7. Dofetilide 500 mcg p.o. every 12 hours.
8. Nexium 40 mg p.o. at bedtime.
9. Ferrous sulfate 325 mg p.o. daily.
10. Flonase 1 spray intranasal daily as needed.
11. Furosemide 20 mg p.o. daily as needed.
12. Glucosamine-chondroitin 1 capsule p.o. daily.
13. Mucinex 600 mg p.o. every 12 hours as needed.
14. Vascepa 1 gram p.o. twice a day.
15. Loperamide 2 mg p.o. every 4 hours as needed.
16. Meclizine 12.5 mg p.o. every 8 hours as needed.
17. Metoprolol Succinate 25 mg p.o. at bedtime.
18. Metoprolol tartrate 25 mg p.o. twice a day as needed.
19. Myrbetriq 50 mg p.o. daily.
20. Prochlorperazine 25 mg p.o. twice a day as needed.
21. Riboflavin 400 mg p.o. daily.
22. Viberzi 100 mg p.o. twice a day.
23. Xarelto 20 mg p.o. every evening.
Allergies: Toviaz. Sulfa. Seasonal.
Review of Systems
-
A 12 point ROS was completed and negative except as noted: Yes
Physical Exam
Vital Signs
Blood pressure 137/65. Heart rate 68. Respirations 18. Pulse ox 95% on room air.
Height 5 feet, 3 inches. Weight 111.2 kg. BMI 43.3 kg.
Physical Exam
General: Well Developed, Well Nourished and No Apparent Distress
HEENT: NormoCephalic, Moist mucous membranes, Atraumatic and PERRLA
Respiratory: Clear
Cardiac: Regular Rhythm
GI: Soft, Non Tender, Non Distended and Other (Morbidly obese. )
Musculoskeletal: Other (Trace sock-line edema bilaterally. She ambulates with a single point cane.)
Skin: Warm and Dry
Neuro: AO x 3 and Nonfocal/grossly intact
Laboratory Results
-
DIAGNOSTIC STUDIES as of 09/27/2023: White blood cell count 7.9. Hemoglobin 12.4. Platelet count 243,000. PT 16.5. INR 1.27. Sodium 136. Potassium 4.1. BUN 11. Creatinine 0.6. Glucose 101. Calcium 8.9. Magnesium 2.0. AST 24. ALT 19. Albumin 4.1.
Type and screen O positive.
EKG 09/27/2023: Normal sinus rhythm.
Impression/Plan
-
IMPRESSION/PLAN:
1. Paroxysmal atrial fibrillation: The patient is in need of pulmonary vein isolation with Dr. Nayan Ferguson on 10/18/2024. The benefits and risks of the procedure have been explained to the patient. The patient understands these risks and wishes to
proceed. She will not be required to undergo a pre-procedural transesophageal echocardiogram as she has been complaint with her home oral anticoagulation. She is aware to continue Xarelto uninterrupted prior to her procedure. She will take no
medications the morning of her ablation.
[2024-10-18] VITALS (12 sets, daily range): BP systolic 125–165; BP diastolic 54–95; BMI 44.3
[2024-10-18 11:18] LABS: ACT-LR - POC 271 Seconds (116-155)
[2024-10-18 11:33] LABS: ACT-LR - POC 303 Seconds (116-155)
--- NOTE | 2024-10-18 11:53 | ITS.CL.ABL ---
[facility] Provider - Ablation
Ablation
Procedure Report:
ELECTROPHYSIOLOGY ABLATION STUDY
DATE:: October 18, 2024�����������������������������REFERRING: Dr. Haresh Miranda
INDICATION: Paroxysmal supraventricular tachycardia in the form of atrial fibrillation.��Prior history of pulmonary vein isolation x 2 most recently in 2018 with radiofrequency energy isolating the pulmonary veins. Of note the posterior wall was
left intact at the second procedure. She now presents with drug refractory paroxysmal atrial fibrillation on dofetilide therapy.
HISTORY: See H and P.� As above. She is made good attempts at compliance with CPAP and weight loss
ANTIARRHYTHMIC DRUG: Dofetilide
PRE-PROCEDURE NADEEM: No atrial thrombus on intracardiac ultrasound
PRESENTING RHYTHM: Sinus rhythm
'TIME-OUT':��called and confirmed.
SEDATION/ANESTHESIA:��provided via the anesthesia department using general anesthesia (LMA).
INTRAVENOUS/ARTERIAL ACCESS:
Femoral venous access was difficult due to body habitus and prior ablation. Direct ultrasound guidance was utilized for access.
Right femoral venous - 8Fr
Left femoral venous -9 Prydeinig
[id number] sutures bilaterally
Ultrasound guidance for bilateral femoral vein access was utilized by me to obtain access with demonstration of normal anatomy
CHADS-VASC Score:
HAS-Bled Score
PROCEDURE:
1.��The PFA catheter was utilized for pacing and mapping support.��This was also used as the reference catheter for the 3-D map.
2. The intracardiac ultrasound catheter was positioned in the RA to identify the FO for targeting of transseptal puncture, assist��in identification of the pulmonary vein ostia, monitoring pre and post ablation pulmonary vein flow velocities,
monitoring for 'bubble' formation during RF application as a sign of thermal injury,��and to monitor for pericardial effusion during mapping and ablation procedure.���Left atrial size, LV ejection fraction, and pulmonary vein flows were monitored
pre and post ablation procedure. The other valves were inspected and found to be free of significant regurgitation or stenosis.
3.��Half of the calculated heparin bolus was administered prior to the first transeptal puncture.��Transseptal puncture was performed to diagnose RA and LA pressure so that safety of LA mapping and ablation could be further assessed, and to access
the left atrium and pulmonary veins for mapping and ablation.��This entailed advancing an 10 Prydeinig steerable with dilator into the superior vena cava and withdrawing both (monitoring intracardiac ultrasound, fluoroscopy and tip pressure) with the
tip oriented toward the atrial septum.��The fossa ovalis was engaged (indicated by sudden displacement of the sheath tip as well as tenting of the fossa seen on intracardiac ultrasound).��Left atrial access required a pass with the [place]
needle extended.��Left atrial catheter position was confirmed by pressure monitoring (RA mean pressure 8 mm Hg and LA mean pressure 14 mm Hg), LA saturation ( 99 %),��as well as fluoroscopy.��The sheath was advanced over the dilator and positioned
in the left atrium.��This procedure was repeated for the Agilis sheath.��The remainder of the calculated heparin bolus was administered and heparin was
infused to maintain ACT at 300 -350 seconds throughout the case.
4.��RA pacing was performed via the proximal decapolar poles and LA pacing was performed via the distal decapolr poles.
5. A quadrapolar catheter was first positioned at the His position for His Bundle recording which was tagged via the 3-D Navex sytem, and then passed to the RVA for RV pacing and recording.
6. The ablation catheter was positioned through one of the transeptal seaths and a 20 pole ring mapping catheter was positioned through the second seath into the LA and then the ostia of the LIPV, LSPV, RSPV and the RIPV.��
7.��Next, a 3-D map was created using Navex.���A 3-D reconstructed CT image was compared to the 3-D Navex map to assist in anatomic interpretation, mapping and ablation.��The CT image and the NavX image were fused.
8. Lesions were delivered circumferentially to the left and right veins as well as a roofline and floor line and posterior wall substrate ablation. Isolated firing was noticed in both sets of veins at baseline. After ablation there was entrance
and exit block in all 4 pulmonary veins including the roof left atrial posterior wall and floor. The patient was noninducible for any other tachyarrhythmias. She is not catheters were then removed.
9. Normal sinus node and AV node function were noted.
TOTAL FLOURO TIME: 11 minutes 83 mGy
TOTAL RF DURATION: 0 minutes
REVERSAL OF HEPARIN: 35 mg of protamine, slow IV administration
COMPLICATIONS:
None
Intracardiac US shows no pericardial effusion post ablation.
SUMMARY:��
Complex left atrial mapping and ablation.
Isolation of the left atrial posterior wall floor and roof as above. Circumferential lesions around each set of veins were also given. There was isolated firing each of the 4 pulmonary veins at baseline.
RECOMMENDATIONS:
1. Ambulate in 4 hours
2. Resume anticoagulation
3.��Resume dofetilide for 1 to 3 months and if she is arrhythmia free can consider discontinuation
4.��Consider same-day discharge
Copy to: Dr. Haresh Miranda
[2024-10-18] MEDS: VENTOLIN NEBULES 2.5 MG INH (13:07)
[2024-10-18] MEDS: MAALOX 30 ML PO (15:10)
--- NOTE | 2024-10-18 16:49 | W.PN.UPDATE ---
Update Note
Progress Note Update
79 y WF s/p PVI (Same day). She denies cp, sob, darrin diet, voiding, groin c/d/i soft, no HT, EKG SR. She will resume Xarelto tonight and continue dofetilide, metoprolol and diltiazem. Activity restrictions reviewed. She will f/u Dr. Miranda in 1-2
mo. She is for d/c home after 445pm.
SUMMARY:��
Complex left atrial mapping and ablation.
Isolation of the left atrial posterior wall floor and roof as above. Circumferential lesions around each set of veins were also given. There was isolated firing each of the 4 pulmonary veins at baseline.
RECOMMENDATIONS:
1. Ambulate in 4 hours
2. Resume anticoagulation
3.��Resume dofetilide for 1 to 3 months and if she is arrhythmia free can consider discontinuation
4.��Consider same-day discharge
Copy to: Dr. Haresh Miranda
== END 2024-10-18 16:58 | disposition home or self-care (01) ==
LOC: CATH 08:07
PROVIDERS: ATTENDING PHYSICIAN Internal Medicine Cardiovascular Disease; FAMILY PHYSICIAN Student in an Organized Health Care Education/Training Program; OTHER PHYSICIAN Internal Medicine Cardiovascular Disease
DX: I48.0 Paroxysmal atrial fibrillation (principal); I10 Essential (primary) hypertension; R00.1 Bradycardia, unspecified; E78.5 Hyperlipidemia, unspecified; G47.33 Obstructive sleep apnea (adult) (pediatric); K21.9 Gastro-esophageal reflux disease without esophagitis; K44.9 Diaphragmatic hernia without obstruction or gangrene; Z87.11 Personal history of peptic ulcer disease; K58.9 Irritable bowel syndrome, unspecified; H81.09 Meniere's disease, unspecified ear; M51.369 Other intervertebral disc degeneration, lumbar region without mention of lumbar back pain or lower extremity pain; M48.061 Spinal stenosis, lumbar region without neurogenic claudication; M19.90 Unspecified osteoarthritis, unspecified site; Z96.642 Presence of left artificial hip joint; E04.2 Nontoxic multinodular goiter; L93.0 Discoid lupus erythematosus; M79.7 Fibromyalgia; M35.00 Sjogren syndrome, unspecified; N30.10 Interstitial cystitis (chronic) without hematuria; R39.81 Functional urinary incontinence; Z79.899 Other long term (current) drug therapy; Z68.41 Body mass index [BMI] 40.0-44.9, adult; E66.01 Morbid (severe) obesity due to excess calories; Z79.1 Long term (current) use of non-steroidal anti-inflammatories (NSAID); I47.19 Other supraventricular tachycardia; Z79.01 Long term (current) use of anticoagulants; Z88.2 Allergy status to sulfonamides; Z88.1 Allergy status to other antibiotic agents; Z90.49 Acquired absence of other specified parts of digestive tract
CPT/HCPCS: C1730; C1769; C1892; C1759; C1733; C1894; C1766; 85347; 93005; 93656; 93657; 94640